=== PATIENT | male | born 1950 | race Caucasian/White ===

== ENCOUNTER 2017-04-22 09:15 | Emergency (ER) | payer OTHER, MEDICARE ==
--- NOTE | 2017-04-22 09:42 | EDM.PDOC ---
[id number] Complaint: [facility] Time Seen by Provider: 04/22/17 09:36 Source of Information: Reports: Patient, EMS, Family History Limitations: Reports: No Limitations - History of Present Illness INITIAL COMMENTS - FREE TEXT/NARRATIVE: 66-year-old male brought in by ambulance after having a syncopal episode and his garage. His last memory is "doing something in the bathroom" when he went out to the garage to see if some company was arriving when he fainted. His found him on the floor breathing but not responding, then he went into what appeared to be seizure activity for a few minutes. He was pale and diaphoretic and then started to come around. He now has no complaints. Onset: Sudden Severity: Moderate Associated Symptoms: Reports: Nausea/Vomiting (Developed nausea and vomiting while in CT scan), Shortness of Breath (Chronic intermittent shortness of breath ). Denies: Chest Pain, Cough - Related Data Allergies Allergy/AdvReac Type Severity Reaction Status Date / Time Latex, Natural Rubber Allergy Rash Verified 04/22/17 09:28 Home Meds: Home Meds Aspirin [Ecotrin] 1 tab PO DAILY 04/22/17 [History] Clopidogrel [Plavix] 1 tab PO DAILY 04/22/17 [History] Diclofenac Sodium [IMW: Diclofenac Sodium] 1 tab PO BID 04/22/17 [History] Esomeprazole [NexIUM] 40 mg PO ONETIME 04/22/17 [History] Metoprolol Tartrate 1 tab PO DAILY 04/22/17 [History] Rosuvastatin [Crestor] 1 tab PO BEDTIME 04/22/17 [History] Past Medical History Cardiovascular History: Reports: Hypertension, [place] Gastrointestinal History: Reports: GERD Genitourinary History: Reports: BPH Musculoskeletal History: Reports: Fracture Neurological History: Reports: Concussion, Vertigo - Past Surgical History Musculoskeletal Surgical History: Reports: Other (See Below) Other Musculoskeletal Surgeries/Procedures:: surgical repair of ankle Social & Family History - Tobacco Use Smoking Status *Q: Never Smoker - Recreational Drug Use Recreational Drug Use: No ED ROS GENERAL - Review of Systems Review Of Systems: See Below Constitutional: Denies: Fever, Chills HEENT: Denies: Vision Change Respiratory: Reports: Shortness of Breath (Intermittent and chronic) Cardiovascular: Denies: Chest Pain GI/Abdominal: Reports: Other (Morbid obesity) Musculoskeletal: Reports: Other (Left wrist is sore from the fall) Neurological: Reports: Seizure, Syncope. Denies: Headache Psychiatric: Reports: No Symptoms - Physical Exam Exam: See Below Exam Limited By: No Limitations General Appearance: Alert, No Apparent Distress Eye Exam: Bilateral Eye: EOMI Neck: Supple, Non-Tender Respiratory/Chest: No Respiratory Distress, Lungs Clear Cardiovascular: Regular Rate, Rhythm GI/Abdominal: Other (Morbid obesity, nontender) Neuro Exam (Abbreviated): Alert, Oriented, No Motor/Sensory Deficits Extremities: Other (Slight swelling and redness with some tenderness over the distal left wrist.) Psychiatric: Normal Affect, Normal Mood Skin Exam: Warm, Dry Course - Vital Signs Last Recorded V/S: Last Vital Signs Temp 96.6 F 04/22/17 09:25 Pulse 64 04/22/17 10:59 Resp 18 04/22/17 10:29 BP 118/68 04/22/17 10:59 Pulse Ox 96 04/22/17 10:59 - Orders/Labs/Meds Orders: Active Orders 24 hr Category Date Time Status Head wo Cont [CT] Stat Exams 04/22/17 09:36 Taken Wrist 2V Lt [CR] Stat Exams 04/22/17 10:13 Taken Labs: Laboratory Tests 04/22/17 04/22/17 04/22/17 Range/Units 10:26 10:26 10:26 WBC 11.3 H (4.5-11.0) K/uL RBC 4.87 (4.30-5.90) M/uL Hgb 14.6 (12.0-15.0) g/dL Hct 42.9 (40.0-54.0) % MCV 88 (80-98) fL MCH 30 (27-31) pg MCHC 34 (32-36) % Plt Count 207 (150-400) K/uL Neut % (Auto) 80 H (36-66) % Lymph % (Auto) 11 L (24-44) % [place] % (Auto) 9 H (2-6) % Eos % (Auto) 0 L (2-4) % Baso % (Auto) 0 (0-1) % PT 10.1 (9.5-12.0) sec INR 0.95 (0.80-1.20) Sodium 143 (140-148) mmol/L Potassium 3.9 (3.6-5.2) mmol/L Chloride 106 (100-108) mmol/L Carbon Dioxide 25 (21-32) mmol/L Anion Gap 11.6 (5.0-14.0) mmol/L BUN 17 (7-18) mg/dL Creatinine 1.2 (0.8-1.3) mg/dL Est Cr Clr Drug Dosing 71.35 mL/min Estimated GFR (MDRD) > 60 (>60) Glucose 193 H (74-106) mg/dL Calcium 8.5 (8.5-10.1) mg/dL Total Bilirubin 0.7 (0.2-1.0) mg/dL AST 22 (15-37) U/L ALT 28 (12-78) U/L Alkaline Phosphatase 73 (46-116) U/L Troponin I 0.046 (0.000-0.056) ng/mL Total Protein 7.0 (6.4-8.2) g/dL Albumin 3.5 (3.4-5.0) g/dL Globulin 3.5 (2.3-3.5) g/dL Albumin/Globulin Ratio 1.0 L (1.2-2.2) Meds: Medications Discontinued Medications Generic Name Dose Route Start Last Admin Trade Name Freq PRN Reason Stop Dose Admin Dexamethasone 10 mg 04/22/17 11:00 04/22/17 11:14 Dexamethasone IVPUSH 04/22/17 11:01 10 mg ONETIME ONE Administration Levetiracetam 1,000 mg/ Sodium 110 mls @ 400 mls/hr 04/22/17 10:30 04/22/17 10:23 Chloride IV 04/22/17 10:46 400 mls/hr ONETIME ONE Administration Ondansetron HCl 4 mg 04/22/17 09:47 04/22/17 09:48 Zofran IVPUSH 04/22/17 09:48 4 mg ONETIME ONE Administration Ondansetron HCl Confirm 04/22/17 09:47 04/22/17 10:01 Zofran Administered 04/22/17 09:48 Not Given Dose 4 mg .ROUTE .STK-MED ONE Ondansetron HCl 4 mg 04/22/17 11:20 04/22/17 11:25 Zofran IVPUSH 04/22/17 11:21 4 mg ONETIME ONE Administration - Re-Assessments/Exams Free Text/Narrative Re-Assessment/Exam: 04/22/17 10:15 CT the head was done which showed a large abnormality. This is located in the right frontal lobe. CBC, CMP, PT and PTT were obtained as well as troponin. 04/22/17 10:28 Radiology interpretation of the CT scan is a 4 cm lesion in the right frontal lobe with surrounding edema, malignancy is considered. An x-ray of the wrist was negative. [facility] in [place] was called, films were sent and consultation was done with neurosurgery in [place]. 04/22/17 11:02 After discussion with neurosurgery, the patient was given 10 mg of IV Decadron, prescriptions for 6 mg of Decadron every 6 hours and Keppra 500 mg twice daily along with 20 mg of Pepcid twice a day. He is to call Dr. Farooq on Monday for a followup appointment. Departure - Departure Time of Disposition: 11:47 Disposition: Home, Self-Care 01 Condition: fair Clinical Impression: Seizure, Cerebral mass Contusion of left wrist Qualifiers: Encounter type: initial encounter Qualified Code(s): S60.212A - Contusion of left wrist, initial encounter - Discharge Information Instructions: Seizure, Adult Referrals: PCP,None [Primary Care Provider] - Forms: ED Department Discharge Care Plan Goals: Continue your regular medications, and take Decadron, Pepcid, and Keppra as prescribed. Monday call [phone] for an appointment with neurosurgery in [place] to discuss further treatment and evaluation. Return anytime sooner if recurring seizures or other concerns - My Orders Last 24 Hours: My Active Orders 04/22/17 09:36 Head wo Cont [CT] Stat 04/22/17 10:13 Wrist 2V Lt [CR] Stat - Assessment/Plan Last 24 Hours: My Active Orders 04/22/17 09:36 Head wo Cont [CT] Stat 04/22/17 10:13 Wrist 2V Lt [CR] Stat
[2017-04-22] MEDS ORDERED: Ondansetron 4 MG/2 ML SDV ONE (09:47)
[2017-04-22] MEDS ORDERED: Ondansetron 4 MG/2 ML SDV IVPUSH ONE ×2 (09:47→11:20)
[2017-04-22] MEDS ORDERED: levETIRAcetam 1,000 MG in Sodium Chloride 0.9% 100 ML IV ONE ×2 (10:07→10:30)
[2017-04-22] MEDS ORDERED: Dexamethasone 4 MG/ML SDV IVPUSH ONE (11:00)
[2017-04-22 11:24] VITALS: BP 118/68
--- NOTE | 2017-04-24 10:54 | CR ---
Wrist 2V Lt INDICATION: fall FINDINGS: 5 mm calcification dorsal to the carpals on the lateral view is highly suspicious for acut e displaced fracture. Soft tissue swelling about the left wrist. Exam otherwise unremarkable.
== END 2017-04-22 11:47 | disposition home or self-care (01) ==
LOC: JP.ED 09:15
DX: R56.9 Unspecified convulsions (principal); S60.212A Contusion of left wrist, initial encounter; G93.9 Disorder of brain, unspecified; I25.2 Old myocardial infarction; I10 Essential (primary) hypertension; K21.9 Gastro-esophageal reflux disease without esophagitis; Z98.890 Other specified postprocedural states; Z79.82 Long term (current) use of aspirin; Z79.02 Long term (current) use of antithrombotics/antiplatelets; Z79.899 Other long term (current) drug therapy; Z91.040 Latex allergy status; W18.09XA Striking against other object with subsequent fall, initial encounter
CPT/HCPCS: 36415; 70450; 73100; 80053; 84484; 85025; 85610; 96365; 96375; 96376; 99285; J1100; J1953; J2405; J7030; 99284

== ENCOUNTER 2018-04-08 20:46 | Emergency (ER) | payer OTHER, MEDICARE ==
--- NOTE | 2018-04-08 21:42 | EDM.PDOC ---
<OfficerGoldy - Last Filed: 04/09/18 01:02> ED HPI GENERAL MEDICAL PROBLEM - General Chief Complaint: Genitourinary Problem Stated Complaint: BLOOD IN URINE Time Seen by Provider: 04/08/18 21:25 - Related Data Allergies Allergy/AdvReac Type Severity Reaction Status Date / Time Latex, Natural Rubber Allergy Rash Verified 04/22/17 09:28 meperidine [From Demerol] Allergy Hypotension Verified 04/08/18 21:11 Home Meds: Home Meds Aspirin [Ecotrin] 1 tab PO DAILY 04/22/17 [History] Diclofenac Sodium [IMW: Diclofenac Sodium] 1 tab PO BID 04/22/17 [History] Esomeprazole [NexIUM] 40 mg PO ONETIME 04/22/17 [History] Allopurinol [Zyloprim] 04/08/18 [History] Esomeprazole Magnesium 04/08/18 [History] levETIRAcetam [Keppra] 04/08/18 [History] metFORMIN HCl [Metformin HCl] 04/08/18 [History] Course - Vital Signs Last Recorded V/S: Last Vital Signs Temp 36.6 C 04/09/18 01:18 Pulse 64 04/09/18 01:18 Resp 14 04/09/18 01:18 BP 123/93 H 04/09/18 01:18 Pulse Ox 97 04/09/18 01:18 - Orders/Labs/Meds Orders: Active Orders 24 hr Category Date Time Status Abdomen Pelvis w wo Cont [CT] Stat Exams 04/08/18 22:15 Taken CULTURE URINE [RM] Stat Lab 04/08/18 21:30 Received UA W/MICROSCOPIC [URIN] Stat Lab 04/08/18 21:27 Ordered Labs: Laboratory Tests 04/08/18 04/08/18 04/08/18 Range/Units 21:27 22:30 22:30 WBC 10.6 (4.5-11.0) K/uL RBC 4.84 (4.30-5.90) M/uL Hgb 14.2 (12.0-15.0) g/dL Hct 42.4 (40.0-54.0) % MCV 88 (80-98) fL MCH 29 (27-31) pg MCHC 34 (32-36) % Plt Count 231 (150-400) K/uL Neut % (Auto) 67 H (36-66) % Lymph % (Auto) 21 L (24-44) % Person % (Auto) 11 H (2-6) % Eos % (Auto) 1 L (2-4) % Baso % (Auto) 0 (0-1) % Sodium (140-148) mmol/L Potassium (3.6-5.2) mmol/L Chloride (100-108) mmol/L Carbon Dioxide (21-32) mmol/L Anion Gap (5.0-14.0) mmol/L BUN (7-18) mg/dL Creatinine (0.8-1.3) mg/dL Est Cr Clr Drug Dosing mL/min Estimated GFR (MDRD) (>60) Glucose (74-106) mg/dL Lactic Acid 1.6 (0.4-2.0) mmol/L Calcium (8.5-10.1) mg/dL Total Bilirubin (0.2-1.0) mg/dL AST (15-37) U/L ALT (12-78) U/L Alkaline Phosphatase (46-116) U/L Total Protein (6.4-8.2) g/dL Albumin (3.4-5.0) g/dL Globulin (2.3-3.5) g/dL Albumin/Globulin Ratio (1.2-2.2) Urine Color Brown Urine Appearance Cloudy Urine pH 5.0 (4.5-8.0) Ur Specific [place] 1.020 (1.008-1.030) Urine Protein 100 H (NEGATIVE) mg/dL Urine Glucose (UA) Normal (NEGATIVE) mg/dL Urine Ketones Negative (NEGATIVE) mg/dL Urine Occult Blood Large (NEGATIVE) Urine Nitrite Negative (NEGAITVE) Urine Bilirubin Small (NEGATIVE) Urine Urobilinogen 4 (NORMAL) mg/dL Ur Leukocyte Esterase Negative (NEGATIVE) Urine RBC Semi-packed H (0-5) Urine WBC 0-5 (0-5) Ur Epithelial Cells Few Amorphous Sediment Not seen Urine Bacteria Few Urine Mucus Not seen 04/08/18 Range/Units 22:30 WBC (4.5-11.0) K/uL RBC (4.30-5.90) M/uL Hgb (12.0-15.0) g/dL Hct (40.0-54.0) % MCV (80-98) fL MCH (27-31) pg MCHC (32-36) % Plt Count (150-400) K/uL Neut % (Auto) (36-66) % Lymph % (Auto) (24-44) % Person % (Auto) (2-6) % Eos % (Auto) (2-4) % Baso % (Auto) (0-1) % Sodium 143 (140-148) mmol/L Potassium 3.9 (3.6-5.2) mmol/L Chloride 107 (100-108) mmol/L Carbon Dioxide 22 (21-32) mmol/L Anion Gap 14.0 (5.0-14.0) mmol/L BUN 19 H (7-18) mg/dL Creatinine 1.3 (0.8-1.3) mg/dL Est Cr Clr Drug Dosing 64.99 mL/min Estimated GFR (MDRD) 55 L (>60) Glucose 136 H (74-106) mg/dL Lactic Acid (0.4-2.0) mmol/L Calcium 8.9 (8.5-10.1) mg/dL Total Bilirubin 0.8 (0.2-1.0) mg/dL AST 16 (15-37) U/L ALT 35 (12-78) U/L Alkaline Phosphatase 107 (46-116) U/L Total Protein 7.3 (6.4-8.2) g/dL Albumin 3.8 (3.4-5.0) g/dL Globulin 3.5 (2.3-3.5) g/dL Albumin/Globulin Ratio 1.1 L (1.2-2.2) Urine Color Urine Appearance Urine pH (4.5-8.0) Ur Specific [place] (1.008-1.030) Urine Protein (NEGATIVE) mg/dL Urine Glucose (UA) (NEGATIVE) mg/dL Urine Ketones (NEGATIVE) mg/dL Urine Occult Blood (NEGATIVE) Urine Nitrite (NEGAITVE) Urine Bilirubin (NEGATIVE) Urine Urobilinogen (NORMAL) mg/dL Ur Leukocyte Esterase (NEGATIVE) Urine RBC (0-5) Urine WBC (0-5) Ur Epithelial Cells Amorphous Sediment Urine Bacteria Urine Mucus Meds: Medications Discontinued Medications Generic Name Dose Route Start Last Admin Trade Name Freq PRN Reason Stop Dose Admin Sodium Chloride 100 mls @ 3 mls/sec 05/27/18 22:30 04/08/18 23:14 Normal Saline IV 3 mls/sec ASDIRECTED LATHA Administration Sodium Chloride 1,000 mls @ 999 mls/hr 04/08/18 23:45 04/09/18 00:15 Normal Saline IV 999 mls/hr ASDIRECTED LATHA Administration Iopamidol 150 ml 04/08/18 22:30 04/08/18 23:14 Isovue-300 (61%) IV 150 ml . DIRECTED LATHA Administration Departure - Departure Time of Disposition: 01:04 Disposition: Home, Self-Care 01 Condition: Fair Clinical Impression: Diverticulitis - Discharge Information Instructions: Diverticulitis, [id number] Referrals: PCP,None [Primary Care Provider] - Forms: ED Department Discharge Additional Instructions: Take full course of antibiotics, please follow-up with your urologist upon return home - My Orders Last 24 Hours: My Active Orders 04/08/18 21:27 UA W/MICROSCOPIC [URIN] Stat 04/08/18 21:30 CULTURE URINE [RM] Stat 04/08/18 22:15 Abdomen Pelvis w wo Cont [CT] Stat - Assessment/Plan Last 24 Hours: My Active Orders 04/08/18 21:27 UA W/MICROSCOPIC [URIN] Stat 04/08/18 21:30 CULTURE URINE [RM] Stat 04/08/18 22:15 Abdomen Pelvis w wo Cont [CT] Stat Plan: Assessment Acuity = acute Site and laterality = diverticulitis, with hematuria unclear etiology Etiology = suspect bacterial cause for diverticulitis Manifestations = none Location of injury = Home Lab values = CBC, CMP, lactic acid all within normal limits urinalysis reveals packed red blood cells consistent hematuria, CT scan reveals no etiology for the hematuria however acute diverticulitis is appreciated in the sigmoid colon Plan Review lab work CT scan results with him elected to place him on antibiotics of Augmentin 875 by mouth 10 days follow-up with his urologist upon return home This note was dictated using [employer] voice recognition software please call with any questions on syntax or grammar. <Sahra Gunn - Last Filed: 04/09/18 17:20> ED HPI GENERAL MEDICAL PROBLEM - General Source of Information: Reports: Patient History Limitations: Reports: No Limitations - History of Present Illness INITIAL COMMENTS - FREE TEXT/NARRATIVE: 67 yo male presents with blood in urine onset this evening. He has mild ABD pain but this has been present to some degree since he started on metformin years ago. generally feels healthy. denies trouble with urine retention or starting his stream of urine. He has had prostrate surgery 10 years ago but has had no trouble since the surgery. Past Medical History Cardiovascular History: Reports: Hypertension, [place] Gastrointestinal History: Reports: GERD Genitourinary History: Reports: BPH, Prostate Disorder Musculoskeletal History: Reports: Fracture Neurological History: Reports: Concussion, Seizure, Vertigo Oncologic (Cancer) History: Reports: Brain - Past Surgical History Male Surgical History: Reports: TURP-Transurethral Resection of Prostate Musculoskeletal Surgical History: Reports: Other (See Below) Other Musculoskeletal Surgeries/Procedures:: surgical repair of ankle Social & Family History - Tobacco Use Smoking Status *Q: Never Smoker ED ROS GENERAL - Review of Systems Review Of Systems: See Below Constitutional: Reports: Fever. Denies: Chills, Fatigue Respiratory: Denies: Shortness of Breath, Wheezing Cardiovascular: Denies: Chest Pain GI/Abdominal: Reports: Abdominal Pain. Denies: Constipation, Diarrhea : Reports: Dysuria, Flank Pain Skin: Denies: Rash ED EXAM, RENAL/ - Physical Exam Exam: See Below Exam Limited By: No Limitations General Appearance: Alert, WD/WN, No Apparent Distress Respiratory/Chest: No Respiratory Distress, Lungs Clear, Normal Breath Sounds. No: Crackles, Rhonchi, Wheezing Cardiovascular: Regular Rate, Rhythm, No Murmur GI/Abdominal: Soft, Tender (mild generalized tenderness) Back Exam: CVA Tenderness (R), CVA Tenderness (L) Psychiatric: Normal Affect, Normal Mood Skin Exam: Warm, Dry, Intact, No Rash Course - Orders/Labs/Meds Labs: Laboratory Tests 04/08/18 04/08/18 04/08/18 Range/Units 21:27 22:30 22:30 WBC 10.6 (4.5-11.0) K/uL RBC 4.84 (4.30-5.90) M/uL Hgb 14.2 (12.0-15.0) g/dL Hct 42.4 (40.0-54.0) % MCV 88 (80-98) fL MCH 29 (27-31) pg MCHC 34 (32-36) % Plt Count 231 (150-400) K/uL Neut % (Auto) 67 H (36-66) % Lymph % (Auto) 21 L (24-44) % Person % (Auto) 11 H (2-6) % Eos % (Auto) 1 L (2-4) % Baso % (Auto) 0 (0-1) % Sodium (140-148) mmol/L Potassium (3.6-5.2) mmol/L Chloride (100-108) mmol/L Carbon Dioxide (21-32) mmol/L Anion Gap (5.0-14.0) mmol/L BUN (7-18) mg/dL Creatinine (0.8-1.3) mg/dL Est Cr Clr Drug Dosing mL/min Estimated GFR (MDRD) (>60) Glucose (74-106) mg/dL Lactic Acid 1.6 (0.4-2.0) mmol/L Calcium (8.5-10.1) mg/dL Total Bilirubin (0.2-1.0) mg/dL AST (15-37) U/L ALT (12-78) U/L Alkaline Phosphatase (46-116) U/L Total Protein (6.4-8.2) g/dL Albumin (3.4-5.0) g/dL Globulin (2.3-3.5) g/dL Albumin/Globulin Ratio (1.2-2.2) Urine Color Brown Urine Appearance Cloudy Urine pH 5.0 (4.5-8.0) Ur Specific [place] 1.020 (1.008-1.030) Urine Protein 100 H (NEGATIVE) mg/dL Urine Glucose (UA) Normal (NEGATIVE) mg/dL Urine Ketones Negative (NEGATIVE) mg/dL Urine Occult Blood Large (NEGATIVE) Urine Nitrite Negative (NEGAITVE) Urine Bilirubin Small (NEGATIVE) Urine Urobilinogen 4 (NORMAL) mg/dL Ur Leukocyte Esterase Negative (NEGATIVE) Urine RBC Semi-packed H (0-5) Urine WBC 0-5 (0-5) Ur Epithelial Cells Few Amorphous Sediment Not seen Urine Bacteria Few Urine Mucus Not seen 04/08/18 Range/Units 22:30 WBC (4.5-11.0) K/uL RBC (4.30-5.90) M/uL Hgb (12.0-15.0) g/dL Hct (40.0-54.0) % MCV (80-98) fL MCH (27-31) pg MCHC (32-36) % Plt Count (150-400) K/uL Neut % (Auto) (36-66) % Lymph % (Auto) (24-44) % Person % (Auto) (2-6) % Eos % (Auto) (2-4) % Baso % (Auto) (0-1) % Sodium 143 (140-148) mmol/L Potassium 3.9 (3.6-5.2) mmol/L Chloride 107 (100-108) mmol/L Carbon Dioxide 22 (21-32) mmol/L Anion Gap 14.0 (5.0-14.0) mmol/L BUN 19 H (7-18) mg/dL Creatinine 1.3 (0.8-1.3) mg/dL Est Cr Clr Drug Dosing 64.99 mL/min Estimated GFR (MDRD) 55 L (>60) Glucose 136 H (74-106) mg/dL Lactic Acid (0.4-2.0) mmol/L Calcium 8.9 (8.5-10.1) mg/dL Total Bilirubin 0.8 (0.2-1.0) mg/dL AST 16 (15-37) U/L ALT 35 (12-78) U/L Alkaline Phosphatase 107 (46-116) U/L Total Protein 7.3 (6.4-8.2) g/dL Albumin 3.8 (3.4-5.0) g/dL Globulin 3.5 (2.3-3.5) g/dL Albumin/Globulin Ratio 1.1 L (1.2-2.2) Urine Color Urine Appearance Urine pH (4.5-8.0) Ur Specific [place] (1.008-1.030) Urine Protein (NEGATIVE) mg/dL Urine Glucose (UA) (NEGATIVE) mg/dL Urine Ketones (NEGATIVE) mg/dL Urine Occult Blood (NEGATIVE) Urine Nitrite (NEGAITVE) Urine Bilirubin (NEGATIVE) Urine Urobilinogen (NORMAL) mg/dL Ur Leukocyte Esterase (NEGATIVE) Urine RBC (0-5) Urine WBC (0-5) Ur Epithelial Cells Amorphous Sediment Urine Bacteria Urine Mucus Meds: Medications Discontinued Medications Generic Name Dose Route Start Last Admin Trade Name Freq PRN Reason Stop Dose Admin Sodium Chloride 100 mls @ 3 mls/sec 04/08/18 22:30 04/08/18 23:14 Normal Saline IV 3 mls/sec ASDIRECTED LATHA Administration Sodium Chloride 1,000 mls @ 999 mls/hr 04/08/18 23:45 04/09/18 00:15 Normal Saline IV 999 mls/hr ASDIRECTED LATHA Administration Iopamidol 150 ml 04/08/18 22:30 04/08/18 23:14 Isovue-300 (61%) IV 150 ml . DIRECTED LATHA Administration - Re-Assessments/Exams Free Text/Narrative Re-Assessment/Exam: 04/09/18 17:19 care signed over to Officer
[2018-04-08] MEDS ORDERED: Iopamidol 612 MG/ML 150 ML Bottle IV SCH (22:30)
[2018-04-08] MEDS ORDERED: Sodium Chloride 0.9% 100 ML IV SCH (22:30)
[2018-04-08] MEDS ORDERED: Sodium Chloride 0.9% 1,000 ML IV SCH (23:45)
[2018-04-09 01:18] VITALS: BP 123/93
== END 2018-04-09 01:19 | disposition home or self-care (01) ==
LOC: JP.ED 20:46
DX: K57.32 Diverticulitis of large intestine without perforation or abscess without bleeding (principal); R31.9 Hematuria, unspecified; Z91.040 Latex allergy status; Z88.5 Allergy status to narcotic agent; Z79.82 Long term (current) use of aspirin; Z79.84 Long term (current) use of oral hypoglycemic drugs; I10 Essential (primary) hypertension
CPT/HCPCS: 36415; 74178; 80053; 81001; 83605; 85025; 87086; 96360; 99284; J7030; 99283

== ENCOUNTER 2021-01-30 21:50 | Emergency (ER) | payer OTHER, MEDICARE ==
[2021-01-30] MEDS ORDERED: LORazepam 2 MG/ML SDV IVPUSH ONE (21:54)
--- NOTE | 2021-01-30 22:21 | EDM.PDOC ---
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 Has been on Keppra in the past however has been off that medication for about a year and has been seizure-free. He had an event today sitting in his chair became unresponsive witnessed by family member was not shaking extremities eyes were closed appeared to have difficulty breathing. EMS services were called at the time arrival EMS was talking would follow commands but was confused did not know where he was did not know the date but knew his name. By the time he arrives to the emergency department he is alert and orientated no focal neurologic deficit denies pain Pain Score (Numeric/FACES): 0 - Related Data Allergies Allergy/AdvReac Type Severity Reaction Status Date / Time Latex, Natural Rubber Allergy Rash Verified 01/30/21 21:55 meperidine [From Demerol] Allergy Hypotension Verified 01/30/21 21:55 Home Meds: Home Meds Aspirin [Ecotrin EC] 81 mg PO DAILY 04/22/17 [History] Esomeprazole [NexIUM] 40 mg PO ONETIME 04/22/17 [History] allopurinoL [Zyloprim] 300 mg PO DAILY 04/08/18 [History] levETIRAcetam [Keppra] 500 mg PO BID #60 tablet 01/31/21 [Rx] Past Medical History Cardiovascular History: Reports: CAD, Hypertension, [place] Gastrointestinal History: Reports: GERD Genitourinary History: Reports: BPH, Prostate Disorder Musculoskeletal History: Reports: Fracture Neurological History: Reports: Concussion, Seizure, Vertigo Oncologic (Cancer) History: Reports: Brain - Past Surgical History Male Surgical History: Reports: TURP-Transurethral Resection of Prostate Musculoskeletal Surgical History: Reports: Other (See Below) Other Musculoskeletal Surgeries/Procedures:: surgical repair of ankle Social & Family History - Tobacco Use Tobacco Use Status *Q: Former Tobacco User ED ROS GENERAL - Review of Systems Review Of Systems: See Below Constitutional: Reports: No Symptoms HEENT: Reports: Other (Tongue pain with bruising and swelling on the left side) Respiratory: Reports: No Symptoms Cardiovascular: Reports: No Symptoms GI/Abdominal: Reports: No Symptoms : Reports: No Symptoms Musculoskeletal: Reports: No Symptoms Neurological: Reports: Seizure ED EXAM, NEURO - Physical Exam Exam: See Below Exam Limited By: No Limitations General Appearance: Alert, WD/WN, No Apparent Distress Eye Exam: Bilateral Eye: EOMI, Normal Inspection, PERRL Ears: Normal External Exam, Normal Canal, Hearing Grossly Normal, Normal TMs Nose: Normal Inspection, Normal Mucosa, No Blood Throat/Mouth: Normal Inspection, Normal Lips, Normal Teeth, Normal Gums, Normal Oropharynx, Normal Voice, No Airway Compromise, Other (Bruising appreciated left side of the tongue) Head Exam: Atraumatic, Normocephalic Neck: Normal Inspection, Supple, Non-Tender, Full Range of Motion Respiratory/Chest: No Respiratory Distress, Lungs Clear, Normal Breath Sounds, No Accessory Muscle Use, Chest Non-Tender Cardiovascular: Regular Rate, Rhythm, No Murmur GI/Abdominal: Soft, Non-Tender, Hernia (Umbilical) Course - Vital Signs Last Recorded V/S: Last Vital Signs Temp 97.6 F 01/30/21 22:25 Pulse 67 01/30/21 23:56 Resp 15 01/30/21 23:56 BP 125/76 01/30/21 23:56 Pulse Ox 93 L 01/30/21 23:56 - Orders/Labs/Meds Orders: Active Orders 24 hr Category Date Time Status EKG Documentation Completion [RC] ASDIRECTED Care 01/30/21 22:14 Active levETIRAcetam [Keppra] 500 mg Med 01/31/21 00:30 Ordered Sodium Chloride 0.9% [Normal Saline] 100 ml IV ONETIME EKG 12 Lead [EK] Stat Ther 01/30/21 22:13 Ordered Medication Orders Levetiracetam 500 mg/ Sodium (Chloride) 105 mls @ 400 mls/hr IV ONETIME ONE Stop: 01/31/21 00:44 Labs: Laboratory Tests 01/30/21 01/30/21 01/30/21 Range/Units 22:25 22:25 22:25 WBC 12.4 H (4.5-11.0) K/uL RBC 4.96 (4.30-5.90) M/uL Hgb 14.6 (12.0-15.0) g/dL Hct 44.3 (40.0-54.0) % MCV 89 (80-98) fL MCH 29 (27-31) pg MCHC 33 (32-36) % Plt Count 210 (150-400) K/uL Neut % (Auto) 80 H (36-66) % Lymph % (Auto) 12 L (24-44) % [place] % (Auto) 7 H (2-6) % Eos % (Auto) 0 L (2-4) % Baso % (Auto) 0 (0-1) % Sodium 145 (140-148) mmol/L Potassium 4.0 (3.6-5.2) mmol/L Chloride 106 (100-108) mmol/L Carbon Dioxide 26 (21-32) mmol/L Anion Gap 13.5 (5.0-14.0) mmol/L BUN 22 H (7-18) mg/dL Creatinine 1.6 H (0.8-1.3) mg/dL Est Cr Clr Drug Dosing 52.08 mL/min Estimated GFR (MDRD) 43 L (>60) Glucose 187 H (74-106) mg/dL Lactic Acid 2.1 H (0.4-2.0) mmol/L Calcium 9.2 (8.5-10.1) mg/dL Total Bilirubin 0.5 (0.2-1.0) mg/dL AST 18 (15-37) U/L ALT 25 (12-78) U/L Alkaline Phosphatase 118 H (46-116) U/L Troponin I < 0.017 (0.000-0.056) ng/mL Total Protein 7.2 (6.4-8.2) g/dL Albumin 4.0 (3.4-5.0) g/dL Globulin 3.2 (2.3-3.5) g/dL Albumin/Globulin Ratio 1.3 (1.2-2.2) Meds: Medications Generic Name Dose Route Start Last Admin Trade Name Freq PRN Reason Stop Dose Admin Levetiracetam 500 mg/ Sodium 105 mls @ 400 mls/hr 01/31/21 00:30 Chloride IV 01/31/21 00:44 ONETIME ONE Discontinued Medications Generic Name Dose Route Start Last Admin Trade Name Freq PRN Reason Stop Dose Admin Lorazepam 0.5 mg 01/30/21 21:54 01/30/21 22:08 Lorazepam 2 Mg/Ml Sdv IVPUSH 01/30/21 21:55 0.5 mg ONETIME ONE Administration Departure - Departure Time of Disposition: 00:35 Disposition: Home, Self-Care 01 Condition: Fair Clinical Impression: Seizure - Discharge Information Prescriptions: levETIRAcetam [Keppra] 500 mg PO BID #60 tablet Instructions: Seizure, Adult Referrals: PCP,None [Primary Care Provider] - Forms: ED Department Discharge Additional Instructions: Your medications of Keppra 500 mg twice a day has been faxed to [facility] please contact your neurologist on Monday for follow-up appointment time, call return to the emergency department worsening of symptoms Sepsis Event Note (ED) - Focused Exam Vital Signs: Vital Signs Temp Pulse Resp BP Pulse Ox 01/30/21 23:56 67 15 125/76 93 L 01/30/21 23:00 75 13 153/77 H 93 L 01/30/21 22:25 97.6 F 73 73 H 121/74 92 L 01/30/21 21:59 97.6 F 73 73 H 121/74 92 L - My Orders Last 24 Hours: My Active Orders 01/30/21 22:13 EKG 12 Lead [EK] Stat 01/30/21 22:14 EKG Documentation Completion [RC] ASDIRECTED 01/31/21 00:30 levETIRAcetam [Keppra] 500 mg Sodium Chloride 0.9% [Normal Saline] 100 ml IV ONETIME - Assessment/Plan Last 24 Hours: My Active Orders 01/30/21 22:13 EKG 12 Lead [EK] Stat 01/30/21 22:14 EKG Documentation Completion [RC] ASDIRECTED 01/31/21 00:30 levETIRAcetam [Keppra] 500 mg Sodium Chloride 0.9% [Normal Saline] 100 ml IV ONETIME Plan: Assessment Acuity = acute Site and laterality = seizure Etiology = probably related to craniotomy and resection Manifestations = none Location of injury = Home Lab values = WBC elevated 12.4 consistent leukocytosis, creatinine elevated 1.6 consistent with chronic renal failure stage G3 B lactic acid slightly elevated 2.1 consistent lactic acidosis troponin was negative CT scan of the head shows craniotomy with frontal malacia however this demonstrates no significant mass- effect no acute hemorrhages appreciated Plan Call discussed case with Dr. Mitchell neurologist on-call at [facility] after discussing the case and the history recommended restarting Keppra he was given a 500 mg loading dose while in the emergency department via IV prescription faxed to [facility] 500 mg p.o. twice daily he is to contact his neurologist on Monday for a follow-up appointment This note was dictated using [employer] voice recognition software please call with any questions on syntax or grammar.
[2021-01-30 23:57] VITALS: BP 125/76; PULSE 67
--- NOTE | 2021-01-31 00:02 | CRLCT ---
INDICATION: Seizure-like activity TECHNIQUE: CT head without contrast. COMPARISON: 04/22/2017 FINDINGS: Post right frontal craniotomy changes are seen with resection of the previously seen large right frontal dense mass. There is a 2.5 x 2.1 x 3.7 cm ovoid low-density area in the region of the previously seen mass which could be related to regional encephalomalacia. Irregular curvilinear isodense to mildly dense foci are noted at the inferior aspect of this region on images 16-18 of series 5 which could be related to residual regional cortex or foci of chronic blood products or parenchymal mineralization. There is decreased attenuation in the anterior right frontal subcortical white matter, decreased in prominence compared to the prior. There is no significant mass effect or midline shift. There is age-related cortical atrophy. Mild ex vacuo dilatation of the right frontal horn is noted. There is no loss of dennis-white differentiation. There is no evidence of an acute extra-axial hemorrhage. No acute calvarial fracture is seen. Trace mucosal thickening is seen in the frontal sinus inferior recesses. The mastoid air cells are clear. The visualized orbits are within normal limits. IMPRESSION: Post right frontal craniotomy and resection of the previously seen right frontal mass, with regional encephalomalacia and persistent anterior right frontal white matter hypodensity. Small curvilinear iso to mildly dense foci at the inferior aspect of the resection cavity could be related to residual cortex or chronic regional blood products versus mineralization. No significant mass effect, loss of dennis-white differentiation or an acute extra-axial hemorrhage. If indicated, consider MRI evaluation. Dictated by Brain Samson MD @ 01/31/2021 12:00:54 AM Please note that all CT scans at this facility use dose modulation, iterative reconstruction, and/or weight-based dosing when appropriate to reduce radiation dose to as low as reasonably achievable. Dictated by: Brain Samson MD @ 01/31/2021 00:01:22 (Electronically Signed)
[2021-01-31] MEDS ORDERED: levETIRAcetam 500 MG in Sodium Chloride 0.9% 100 ML IV ONE (00:30)
== END 2021-01-31 01:20 | disposition home or self-care (01) ==
LOC: JP.ED 21:50
DX: R56.9 Unspecified convulsions (principal); I25.10 Atherosclerotic heart disease of native coronary artery without angina pectoris; I10 Essential (primary) hypertension; I25.2 Old myocardial infarction; K21.9 Gastro-esophageal reflux disease without esophagitis; Z87.891 Personal history of nicotine dependence; Z91.040 Latex allergy status; Z88.5 Allergy status to narcotic agent; Z79.82 Long term (current) use of aspirin; Z79.899 Other long term (current) drug therapy
CPT/HCPCS: 36415; 70450; 80053; 83605; 84484; 85025; 93005; 96374; 96375; 99284; 99285-25; J1953; J2060